=== PATIENT | male | born 1985 ===

== ENCOUNTER 2022-07-15 15:08 | Emergency (ER) | payer BC, OTHER ==
[2022-07-15] MEDS ORDERED: Aspirin 81 MG Tab.Chew PO ONE (16:31)
[2022-07-15] MEDS ORDERED: Sodium Chloride 0.9% 1,000 ML IV ONE (16:31)
[2022-07-15 17:09] LABS: CORONAVIRUS COVID-19 NAA NEGATIVE (NEGATIVE); INFLUENZA A NAA NEGATIVE (NEGATIVE); INFLUENZA B NAA NEGATIVE (NEGATIVE); RESPIRATORY SYNCYTIAL VIR NAA NEGATIVE (NEGATIVE)
[2022-07-15 17:37] LABS: CARBON DIOXIDE,CO2 28.5 mmol/L (21.0-32.0); POTASSIUM,K 3.8 mmol/L (3.5-5.1)
[2022-07-15 18:23] VITALS: BP 155/92; PULSE 88
== END 2022-07-15 18:26 | disposition home or self-care (01) ==
LOC: MW.ED 15:08
DX: R07.89 Other chest pain (principal); Z91.030 Bee allergy status; Z79.899 Other long term (current) drug therapy; Z20.822 Contact with and (suspected) exposure to COVID-19
CPT/HCPCS: 0241U; 36415; 71045; 80053; 83690; 83735; 84484; 85025; 85379; 93005; 96360; 99285; A9270; J7030